=== PATIENT | female | born 1995 | race Two or more races ===

== ENCOUNTER 2019-11-15 18:53 | Emergency (ER) | payer BC ==
[2019-11-15 18:58] VITALS: BP 113/82; PULSE 80; TEMP 98; BMI 22.0
--- NOTE | 2019-11-15 18:59 | PDOC ---
Rapid Medical Evaluation Time Seen by Provider: 11/15/19 18:55 Medical Evaluation: 11/15/19 18:55 HPI: 24 year old female pmhx of hydradenitis complaining of abscess to B/L armpits PE: B/L axillary: ttp areas of induration and flucuance A/P: Differed to provider Pt to precede to ED for further evaluation and treatment.
--- NOTE | 2019-11-15 19:28 | PDOC ---
History of Present Illness - General Chief Complaint: Abscess Boil Stated Complaint: ABSCESS Time Seen by Provider: 11/15/19 18:55 - History of Present Illness Initial Comments: 11/15/19 19:25 24-year-old female without comorbidities presents for bilateral axillary pain x5 days without any precipitating traumatic event. She does have a history of abscesses that were drained in her axilla. Past History - Medical History Allergies/Adverse Reactions: Allergies Allergy/AdvReac Type Severity Reaction Status Date / Time No Known Allergies Allergy Verified 11/15/19 18:55 Home Medications: Ambulatory Orders Cephalexin [Keflex] 500 mg PO QID #40 capsule 11/15/19 Ibuprofen [Motrin -] 600 mg PO TID #30 tablet 11/15/19 Sulfamethoxazole/Trimethoprim [Bactrim Ds -] 1 tab PO BID #14 tablet 11/15/19 COPD: No - Reproductive History Is Patient Now?: No - Immunization History Immunization Up to Date: Yes - Psycho-Social/Smoking History Smoking History: Never smoked - Substance Abuse Hx (Audit-C & DAST Scrn) How often the patient has a drink containing alcohol: Never Score: In Men: 4 or > Positive; In Women: 3 or > Positive: 0 Screen Result (Pos requires Nsg. Audit-10AR): Negative In the last yr the pt used illegal drug/Rx for NonMed reason: No Score: Yes response is considered Positive: 0 Screen Result (Positive result requires Nsg. DAST-10): Negative Review of Systems - Review of Systems Constitutional: No: Fever Integumentary: Yes: See HPI, Erythema, Lesions *Physical Exam - Vital Signs Last Vital Signs Temp Pulse Resp BP Pulse Ox 98.0 F 80 18 113/82 100 11/15/19 18:56 11/15/19 18:56 11/15/19 18:56 11/15/19 18:56 11/15/19 18:56 - Physical Exam 11/15/19 19:26 Bilateral firm erythemic tender nodules without fluctuance bilateral axilla. Mild induration of the skin. No drainage or open wounds.There is also mild warmth. Medical Decision Making - Medical Decision Making 11/15/19 19:26 Multiple abscesses possibly hidradenitis bilateral axilla. Bactrim and Keflex follow-up with general surgery warm compresses I have reviewed the pathophysiology with the patient. They are in agreement with the treatment plan all questions were answered to their satisfaction. Understanding for follow-up without fail was also conveyed to the patient. Again they are in agreement. Discharge - Discharge Information Problems reviewed: Yes Clinical Impression/Diagnosis: Abscesses of both axillae Condition: Stable Disposition: HOME - Admission No - Additional Discharge Information Prescriptions: Sulfamethoxazole/Trimethoprim [Bactrim Ds -] 1 tab PO BID #14 tablet Cephalexin [Keflex] 500 mg PO QID #40 capsule Ibuprofen [Motrin -] 600 mg PO TID #30 tablet - Follow up/Referral Referrals: Rocco Barry MD [Primary Care Provider] - Joe Cabral MD [Staff Physician] - - Patient Discharge Instructions Additional Instructions: Please take the antibiotics and pain medication as directed. Without fail follow-up with general surgery in 1 to 2 days for further evaluation and treatment options. Warm compresses as we discussed in the emergency room. Do not take any [id number] anti-inflammatories such as Advil Motrin Aleve or ibuprofen. You may take Tylenol if needed for additional pain medication. You were prescription strength anti-inflammatory. Please take that medication with food and discontinue the medication should it bother your stomach. - Post Discharge Activity
== END 2019-11-15 21:48 | disposition home or self-care (01) ==
LOC: JERFT 18:53
DX: L02.412 Cutaneous abscess of left axilla (principal); L02.411 Cutaneous abscess of right axilla
CPT/HCPCS: 99282-25

== ENCOUNTER 2019-12-05 07:46 | Emergency (ER) | payer BC ==
[2019-12-05 08:12] VITALS: BP 117/86; PULSE 93; TEMP 98.3; BMI 22.0
[2019-12-05] MEDS ORDERED: ACETAMINOPHEN 1000 MG/100 ML VIAL (NON FORMULARY) IVPB ONE (08:49)
[2019-12-05] MEDS ORDERED: SODIUM CHLORIDE 1,000 ML IV STA (08:49)
[2019-12-05] MEDS ORDERED: ONDANSETRON 4 MG/2 ML VIAL IVPUSH ONE (08:49)
--- NOTE | 2019-12-05 09:00 | PDOC ---
History of Present Illness - General Chief Complaint: Pain Stated Complaint: Headache and nausea Time Seen by Provider: 12/05/19 08:43 History Source: Patient Exam Limitations: No Limitations - History of Present Illness Travel History: No Initial Comments: 12/05/19 08:54 24-year-old female presents to ED with complaints of headache since 3 AM associated with nausea now with vomiting since 7 AM. Patient also states feels dehydrated and slightly dizzy. Patient states was smoking hookah and drinking tequila last night. Patient has no other complaints at this time and denies any medical history. Timing/Duration: reports: changing over time Quality: reports: mild Abdominal Pain Onset Location: reports: epigastric Pain Radiation: reports: no radiation Activities at Onset: reports: none Aggravating Factors: improves with: None Alleviating Factors: improves with: None Past History - Travel History Traveled outside of the country in the last 30 days: No Close contact w/someone who was outside of country & ill: No - Medical History Allergies/Adverse Reactions: Allergies Allergy/AdvReac Type Severity Reaction Status Date / Time No Known Allergies Allergy Verified 12/05/19 07:50 Home Medications: Ambulatory Orders Cephalexin [Keflex] 500 mg PO QID #40 capsule 11/15/19 Ibuprofen [Motrin -] 600 mg PO TID #30 tablet 11/15/19 Sulfamethoxazole/Trimethoprim [Bactrim Ds -] 1 tab PO BID #14 tablet 11/15/19 Asthma: Yes COPD: No - Reproductive History Is Patient Now?: No - Immunization History Immunization Up to Date: Yes - Psycho-Social/Smoking History Patient Lives Alone: No Lives with/in: spouse/SO Smoking History: Current some day smoker Have you smoked in the past 12 months: Yes Number of Cigarettes Smoked Daily: 0 Information on smoking cessation initiated: Yes - Substance Abuse Hx (Audit-C & DAST Scrn) How often the patient has a drink containing alcohol: Monthly or less Number of drinks the patient has on a typical day: 1 or 2 How often the patient has six or more drinks on one occasion: Never Score: In Men: 4 or > Positive; In Women: 3 or > Positive: 1 Screen Result (Pos requires Nsg. Audit-10AR): Negative In the last yr the pt used illegal drug/Rx for NonMed reason: No Score: Yes response is considered Positive: 0 Screen Result (Positive result requires Nsg. DAST-10): Negative Review of Systems - Review of Systems Able to Perform ROS?: No Is the patient limited [place] proficient: No Constitutional: Yes: Weakness HEENTM: No: Symptoms Reported Respiratory: No: Symptoms reported Cardiac (ROS): No: Symptoms Reported ABD/GI: Yes: Nausea, Vomiting, Indigestion : No: Symptoms Reported Endocrine: No: Symptoms Reported Hematologic/Lymphatic: No: Symptoms Reported *Physical Exam - Vital Signs Last Vital Signs Temp Pulse Resp BP Pulse Ox 98.3 F 93 H 20 117/86 100 12/05/19 07:51 12/05/19 07:51 12/05/19 07:51 12/05/19 07:51 12/05/19 07:51 - Physical Exam General Appearance: Yes: Nourished, Appropriately Dressed. No: Apparent Distres s HEENT: negative: Pale Conjunctivae Neck: positive: Supple Respiratory/Chest: positive: Lungs Clear, Normal Breath Sounds. negative: Respiratory Distress, Accessory Muscle Use Cardiovascular: positive: Regular Rhythm, Regular Rate. negative: Murmur Gastrointestinal/Abdominal: positive: Soft. negative: Tenderness (Epigastric right upper quadrant) Musculoskeletal: negative: CVA Tenderness Extremity: positive: Normal Inspection Integumentary: positive: Normal Color, Warm, Moist Neurologic: positive: Motor Strength 5/5 (Ambulatory) ED Treatment Course - LABORATORY CBC & Chemistry Diagram: 12/05/19 09:30 12/05/19 08:52 Medical Decision Making - Medical Decision Making 12/05/19 08:59 Chief complaint: Nausea vomiting headache and weakness since 3 AM. Patient was drinking and smoking hookah last night. No other complaints. Exam: Patient actively vomiting here in ER. Vital signs stable. No abdominal tenderness despite patient stating epigastric discomfort. Plan: Labs, IV fluids, IV Tylenol and Zofran. 12/05/19 10:21 Laboratory Tests 12/05/19 12/05/19 08:52 09:30 WBC 7.5 Hgb 13.0 Hct 38.3 Absolute Neuts (auto) 5.3 Neutrophils % 70.9 Sodium 137 Potassium 3.5 Chloride 104 Carbon Dioxide 26 Anion Gap 6 L BUN 14.0 Creatinine 1.0 Random Glucose 100 Total Bilirubin 1.1 H Patient states feeling better. Will complete IV fluids and discharge shortly. Discharge - Discharge Information Problems reviewed: Yes Clinical Impression/Diagnosis: Nausea & vomiting Condition: Improved Disposition: HOME - Follow up/Referral Referrals: Rocco Barry MD [Primary Care Provider] - - Patient Discharge Instructions Patient Printed Discharge Instructions: Nausea and Vomiting-Adult Additional Instructions: Try to eat small frequent meals today Rest, stay well-hydrated, and avoid alcohol intake - Post Discharge Activity
[2019-12-05] MEDS ORDERED: ACETAMINOPHEN INJECTION 100 ML IVPB ONE (09:22)
[2019-12-05 09:47] LABS: BASO % 0.9 % (0-2.0); EOS % 0.5 % (0-4.5); HEMATOCRIT 38.3 % (32.4-45.2); LYMPH % 21.4 % (8-40); MCH 30.1 pg (25.7-33.7); MCHC 33.8 g/dl (32.0-36.0); MEAN PLT VOLUME 7.8 fl (7.5-11.1); MONO % 6.3 % (3.8-10.2); NEUT % 70.9 % (42.8-82.8); PLATELET COUNT 341 K/MM3 (134-434); RBC 4.31 M/mm3 (3.60-5.2); RDW 14.3 % (11.6-15.6); WHITE BLOOD COUNT 7.5 K/mm3 (4.0-10.0)
[2019-12-05 10:11] LABS: BILIRUBIN,TOTAL 1.1 mg/dL (0.2-1); MAGNESIUM 2.4 mg/dL (1.8-2.4); POTASSIUM 3.5 mmol/L (3.5-5.1); TOT PROT 8.8 g/dl (6.4-8.2)
== END 2019-12-05 11:14 | disposition home or self-care (01) ==
LOC: JER 07:46
PROC: 3E0333Z Introduction of Anti-inflammatory into Peripheral Vein, Percutaneous Approach (ICD-10-PCS; principal; 2019-12-05)
PROC: 3E033GC Introduction of Other Therapeutic Substance into Peripheral Vein, Percutaneous Approach (ICD-10-PCS; 2019-12-05)
PROC: 3E0337Z Introduction of Electrolytic and Water Balance Substance into Peripheral Vein, Percutaneous Approach (ICD-10-PCS; 2019-12-05)
DX: R11.2 Nausea with vomiting, unspecified (principal)
CPT/HCPCS: 36415; 80053; 83735; 85025; 99284-25; J0131